=== PATIENT | female | born 1975 | race Two or more races ===

== ENCOUNTER 2024-05-24 17:39 | Emergency (ER) | payer MEDICAID ==
[~2024-05-24] VITALS: Ht 160 cm; Wt 74.0 kg
[2024-05-24 17:49] VITALS: O2SAT 99
[2024-05-24 17:52] VITALS: BP 134/86; PULSE 72; RESP 16; TEMP 99; O2SAT 100
[2024-05-24 18:15] LABS: BASOPHILS % 0.7 % (0.0-2.0); EOSINOPHILS % 0.6 % (0.0-5.0); HEMATOCRIT. 36.9 % (36.0-48.0); LYMPHOCYTES % 24.3 % (20.0-50.0); MEAN CORPUSCULAR HEMOGLOBIN 27.8 pg (28.0-32.0); MEAN CORPUSCULAR HGB CONC 32.5 g/dL (31.0-37.0); MEAN CORPUSCULAR VOLUME 85.6 fL (81.0-99.0); MEAN PLATELET VOLUME 6.9 fl (7.4-10.4); MONOCYTES % 10.6 % (2.0-8.0); NEUTROPHILS % 63.8 % (40.0-76.0); PLATELET 459 x1000/uL (130-400); WHITE BLOOD COUNT 8.2 x1000/uL (4.5-11.0)
[2024-05-24 18:19] LABS: CHLORIDE 108 mEq/L (98-107); POTASSIUM 3.9 mEq/L (3.5-5.1); SODIUM 137 mEq/L (136-145)
[2024-05-24 18:20] LABS: CALCIUM 8.9 mg/dL (8.7-10.4); CARBON DIOXIDE 27 mEq/L (21-32)
[2024-05-24 18:25] LABS: CREATININE 0.9 mg/dL (0.6-1.0); GLUCOSE 87 mg/dL (70-105); UREA NITROGEN BLOOD 11 mg/dL (9-23)
[2024-05-24 18:28] LABS: TROPONIN I HIGH SENSITIVITY < 4 ng/L (3.0-34)
== END 2024-05-24 20:14 | disposition left against medical advice (07) ==
LOC: ER 17:39
DX: R07.89 Other chest pain (principal); Z53.21 Procedure and treatment not carried out due to patient leaving prior to being seen by health care provider
CPT/HCPCS: 36415; 71045; 80048; 84484; 85025; 93005